=== PATIENT | female | born 1990 | race Caucasian/White ===

== ENCOUNTER → 2020-08-09 12:09 | Outpatient (CLI) | payer OTHER, MEDICAID, SELFPAY ==
[2020-08-09] MEDS: COVID-19 VACC #1, MRNA(MOD) 100 MCG/0.5 ML VIAL IM (12:19)
== END ==
PROVIDERS: Visit Provider Internal Medicine
DX: Z23 Encounter for immunization (principal)
CPT/HCPCS: 0011A; 91301

== ENCOUNTER → 2020-09-07 12:12 | Outpatient (CLI) | payer OTHER, MEDICAID, SELFPAY ==
[2020-09-07] MEDS: COVID-19 VACC #2, MRNA(MOD) 100 MCG/0.5 ML VIAL IM (12:20)
== END ==
PROVIDERS: Visit Provider Internal Medicine
DX: Z23 Encounter for immunization (principal)
CPT/HCPCS: 0012A; 91301

== ENCOUNTER 2021-12-22 09:40 | Emergency (ER) | payer OTHER, MEDICAID, SELFPAY ==
[2021-12-22 09:55] VITALS: BP 119/68; PULSE 70; RESP 15; TEMP 36.3; O2SAT 99; BMI 46.5
[2021-12-22 11:22] VITALS: BP 116/69; PULSE 59; TEMP 36.5; O2SAT 100
[2021-12-22] MEDS: hydrOXYzine pamoate 25 MG CAPSULE PO (12:34)
[2021-12-22] MEDS: predniSONE 20 MG TABLET 40 MG PO (12:34)
[2021-12-22 12:37] VITALS: BP 116/70; PULSE 6; RESP 18; O2SAT 98
--- NOTE | 2021-12-22 14:09 | ED.SKABFB ---
HPI - Skin/Abscess/Foreign Bdy <WONG Wood - Last Filed: 12/22/21 14:16> General Chief complaint: Skin/Abscess/Foreign Body Stated complaint: Rash after bug bites 6 days ago Time Seen by Provider: 12/22/21 12:00 Source: patient Mode of arrival: Ambulatory Limitations: no limitations History of Present Illness HPI narrative: This is a 31-year-old female presents to the emergency department with a pruritic rash on her bilateral lower extremities after she had some bug bites and was outside of the [facility] six days ago. Patient states that she does not have any abscesses or open wounds, and her bug bites or healed, but she developed this the next day on her bilateral legs and it extends up into the mid thigh, states it is not significantly red but it is just tiny bumps that are irritated and itchy, states that she thinks there hives on her upper legs and that it is worse at nighttime. She denies any known allergies, states that she takes Suboxone at baseline for chronic pain. Denies any recent fever but states that she had a runny nose, sore throat, and diarrhea yesterday. She states that normally she is constipated so that was abnormal for her. She denies any cough, shortness of breath, chest pain, or any worsening of this rash. She says that she is tried topical calamine and hydrocortisone cream and it has not helped. She denies trying any oral medications yet. Related Data Previous Rx's Medication Instructions Recorded cetirizine 10 mg tablet 10 mg PO DAILY #30 tabs 12/22/21 hydroxyzine HCl 25 mg tablet 25 mg PO TID PRN itching #20 tabs 12/22/21 methylprednisolone 4 mg tablets in See Rx Instructions PO .COMPLEX 12/22/21 a dose pack (Medrol (Jet)) #21 ea triamcinolone acetonide 0.1 % 1 applic topical DAILY PRN rash 12/22/21 topical ointment #15 grams Allergies Allergy/AdvReac Type Severity Reaction Status Date / Time No Known Drug Allergies Allergy Verified 12/22/21 09:55 Review of Systems <WONG Wood - Last Filed: 12/22/21 14:16> Review of Systems Narrative: General: denies fever, chills Head/Neck: denies headache, neck pain Eyes: denies visual changes, eye pain Cardio: denies chest pain, palpitations Respiratory: denies shortness of breath, cough GI: denies abdominal pain, nausea, vomiting, or diarrhea : denies dysuria, hematuria or flank pain MSK: denies new joint pain, muscle weakness or swelling Skin: Endorses having an itchy rash on her bilateral lower extremities without any open wound or infected bug bites Neuro: denies numbness, tingling, dizziness Patient History <WONG Wood - Last Filed: 12/22/21 14:16> Social History Smoking Status: Unknown if ever smoked Smoking Status: Unknown if ever smoked alcohol intake frequency: 0-2 drinks per day Substance Use Type: does not use Exam <WONG Wood - Last Filed: 12/22/21 14:16> Narrative Exam Narrative: Independently reviewed vitals signs and nursing notes. General: Awake, alert, nontoxic, no cardiorespiratory distress, interactive Head/Neck: Atraumatic, neck with normal range of motion Eyes: EOMI, conjunctiva normal Nose: nares patent, no rhinorrhea Mouth/Throat: moist mucus membranes Cardiovascular: Regular rate and rhythm, no dependant edema, warm extremities Respiratory: respirations unlabored and without wheezing, stridor, or rales. No retractions, hypoxia or tachypnea MSK: Moves all extremities, neurovascularly intact, range of motion without deficit Skin: Normal capillary refill, urticarial lesions on bilateral lower extremities, maculopapular with tiny pink papules. No associated edema or significant erythema. Neuro: Normal speech and cognition, normal gait Initial Vital Signs Initial Vital Signs: Vital Signs Temperature 97.4 F L 12/22/21 09:55 Pulse Rate 70 12/22/21 09:55 Respiratory Rate 15 12/22/21 09:55 Blood Pressure 119/68 12/22/21 09:55 Pulse Oximetry 99 12/22/21 09:55 Oxygen Delivery Method 12/22/21 09:55 <Elva Ba DO - Last Filed: 12/23/21 07:44> Initial Vital Signs Initial Vital Signs: Vital Signs Temperature 97.4 F L 12/22/21 09:55 Pulse Rate 70 12/22/21 09:55 Respiratory Rate 15 12/22/21 09:55 Blood Pressure 119/68 12/22/21 09:55 Pulse Oximetry 99 12/22/21 09:55 Oxygen Delivery Method 12/22/21 09:55 Course <WONG Wood - Last Filed: 12/22/21 14:16> Orders Ordered: Discontinued Medications Hydroxyzine Pamoate (Hydroxyzine Pamoate 25 Mg Capsule) 25 mg PO NOW ONE Stop: 12/22/21 12:26 Last Admin: 12/22/21 12:34 Dose: 25 mg Documented By: CHECO Prednisone (Prednisone 20 Mg Tablet) 40 mg PO NOW ONE Stop: 12/22/21 12:26 Last Admin: 12/22/21 12:34 Dose: 40 mg Documented By: CHECO Vital Signs Vital signs: Vital Signs - 8 hr 12/22/21 09:55 12/22/21 11:22 12/22/21 12:37 Temperature 97.4 F L 97.7 F Pulse Rate 70 59 L 6 L Respiratory Rate 15 18 Blood Pressure 119/68 116/69 116/70 Pulse Oximetry 99 100 98 Oxygen Delivery Method Room Air Room Air <Elva Ba DO - Last Filed: 12/23/21 07:44> Orders Ordered: Discontinued Medications Hydroxyzine Pamoate (Hydroxyzine Pamoate 25 Mg Capsule) 25 mg PO NOW ONE Stop: 12/22/21 12:26 Last Admin: 12/22/21 12:34 Dose: 25 mg Documented By: CHECO Prednisone (Prednisone 20 Mg Tablet) 40 mg PO NOW ONE Stop: 12/22/21 12:26 Last Admin: 12/22/21 12:34 Dose: 40 mg Documented By: CHECO Vital Signs Vital signs: Vital Signs - 8 hr 12/22/21 09:55 12/22/21 11:22 12/22/21 12:37 Temperature 97.4 F L 97.7 F Pulse Rate 70 59 L 6 L Respiratory Rate 15 18 Blood Pressure 119/68 116/69 116/70 Pulse Oximetry 99 100 98 Oxygen Delivery Method Room Air Room Air MDM - Skin/Abscess/Foreign Bdy <WONG Wood - Last Filed: 12/22/21 14:16> MDM Narrative Medical decision making narrative: This is a 31-year-old female presents to the emergency department complaining of an itchy rash on her bilateral lower legs after she went to the [facility] last week and had some bug bites. She states the next day she developed this rash on her legs, states that she had diarrhea a couple of days ago and a sore throat with a runny nose but has not had any coughing or significant symptoms otherwise. She is tried hydrocortisone cream did not help. Today in the emergency department she was treated with prednisone and hydroxyzine for pruritus, she was given a prescription of cetirizine, triamcinolone cream, and hydroxyzine and a methylprednisolone pack. Encourage patient to return to the emergency department she has any progressive symptoms of this rash, if it becomes red or if there are signs of infection, if she develops a fever or edema associated with the rash. Low suspicion for cellulitis, these appear most like urticarial lesions. Patient is appropriate and amenable to discharge home. Vital signs are stable on repeat examination is unremarkable. Patient has been informed of results. Patient has been given strict return to ER precautions for any new or worsening symptoms. Patient understands to follow up closely with outpatient providers as instructed. Patient understands plan and agrees to discharge home. All questions and concerns answered at this time. Discharge Plan Departure Patient Disposition: Home Clinical Impression: Urticaria Instructions: RONA Valdes for Rash Activity Restrictions/Additional Instructions: *You have been diagnosed with a rash of your legs following bug bites. This is most likely an allergic reaction to the bug bite, I did not see any lesions that appeared infected or like an abscess but if this does develop or you have worsening symptoms following this please return to the emergency department for possible antibiotics. Please treat your itchy rash during the daytime with hydroxyzine, Zyrtec, and topical triamcinolone cream. The steroids should help you feel better soon, please take your medications with food. Drink plenty of water to avoid constipation. This could be related to a viral illness and might make sense with your recent fatigue and diarrhea. If you develop a fever, please consider taking a COVID test. Thank you for trusting us with your care, please return for any worsening. You can start the steroid pack tomorrow. Benadryl cream can help with itching as well. *What to do: *Please continue to take your regular medications as directed. [ x] New medication prescriptions sent to your pharmacy: [[facility]] [ ] New medication written as a paper prescription [ ] No new medications given *Please follow up with your primary care provider in 2-3 days, call for an appointment. Let them know you were seen in the Emergency Department and that we asked that you be seen for follow-up. We will electronically transmit a record of today's note if your PCP is in our system *If you do not have a primary care provider please contact [phone] to establish care with one of the [facility] primary care providers. *Return to Emergency Department if you should have any new, worsening or concerning symptoms, such as [fever greater than 101F, chills, worsening pain, persistent vomiting or other bothersome symptoms] Prescriptions: New hydroxyzine HCl 25 mg tablet 25 mg PO TID PRN (Reason: itching) Qty: 20 0RF cetirizine 10 mg tablet 10 mg PO DAILY Qty: 30 0RF methylprednisolone [Medrol (Jet)] 4 mg tablets,dose pack See Rx Instructions .ROUTE .COMPLEX Qty: 21 0RF Rx Instructions: orally per package directions triamcinolone acetonide 0.1 % ointment 1 applic topical DAILY PRN (Reason: rash) Qty: 15 0RF Rx Instructions: Use for up to five days in a row and then take two days off. Visit Report Forms: Patient Portal/API <Elva Ba, DO - Last Filed: 12/23/21 07:44> [facility] Attestation: I was immediately available in the department for consultation. Documentation has been reviewed. I agree with assessment and plan.
== END 2021-12-22 12:38 | disposition home or self-care (01) ==
PROVIDERS: Emergency Provider Nurse Practitioner Critical Care Medicine
DX: L50.9 Urticaria, unspecified (principal)
CPT/HCPCS: 99283

== ENCOUNTER 2021-12-31 12:57 | Emergency (ER) | payer OTHER, MEDICAID, SELFPAY ==
[2021-12-31 13:11] VITALS: BP 145/81; PULSE 70; RESP 16; TEMP 36.7; O2SAT 98; BMI 46.5
--- NOTE | 2021-12-31 13:29 | ED_ITS ---
HPI - Nausea/Vomiting/Diarrhea General Chief complaint: Nausea/Vomiting/Diarrhea Stated complaint: NVD X 14 days Time Seen by Provider: 12/31/21 13:22 History of Present Illness HPI Narrative: Patient is a 31 year old female chronically on Suboxone presenting today with her other family members for soft poop for 2 weeks. She says 3 times a day they have some fatty like all of them. It is nonbloody. She feels little bit bloated. No nausea vomiting or fever. Started after daughter plated the splash pad and maybe drink some water. However nor she or her drink water. Not any worse today just not going away. She is able to eat and drink normally. Related Data Previous Rx's Medication Instructions Recorded cetirizine 10 mg tablet 10 mg PO DAILY #30 tabs 12/22/21 hydroxyzine HCl 25 mg tablet 25 mg PO TID PRN itching #20 tabs 12/22/21 methylprednisolone 4 mg tablets in See Rx Instructions PO .COMPLEX 12/22/21 a dose pack (Medrol (Jet)) #21 ea triamcinolone acetonide 0.1 % 1 applic topical DAILY PRN rash 12/22/21 topical ointment #15 grams Allergies Allergy/AdvReac Type Severity Reaction Status Date / Time No Known Drug Allergies Allergy Verified 12/22/21 09:55 Review of Systems Review of Systems Narrative: GENERAL: Denies chills,fever HEENT: Denies throat pain RESPIRATORY: Denies dyspnea, cough, wheezing CARDIOVASCULAR: Denies chest pain, palpitations GASTROINTESTINAL: See HPI MUSCULOSKELETAL: Denies extremity pain, injury SKIN: No rash, no laceration, no pruritus NEUROLOGIC: Denies weakness, dizziness, headache, numbness 8 point review of systems is negative except for those stated above and HPI Patient History Social History Smoking Status: Unknown if ever smoked Smoking Status: Unknown if ever smoked alcohol intake frequency: 0-2 drinks per day Substance Use Type: does not use Exam Initial Vital Signs Initial Vital Signs: Vital Signs Temperature 98.1 F 12/31/21 13:11 Pulse Rate 70 12/31/21 13:11 Respiratory Rate 16 12/31/21 13:11 Blood Pressure 145/81 H 12/31/21 13:11 Pulse Oximetry 98 12/31/21 13:11 Oxygen Delivery Method 12/31/21 13:11 GENERAL: Alert well-appearing 31-year-old female HEENT: Head atraumatic,EOMI, pupils reactive, face symmetric, [moist] mucous membranes CARDIOVASCULAR: Regular rate and rhythm without murmurs, rubs or gallops. RESPIRATORY: Breath sounds equal bilaterally, no wheezes rales or rhonchi. ABDOMEN: Soft, nontender. Normoactive bowel sounds all 4 quadrants. No guarding or rebound. EXTREMITIES: Normal range of motion, no clubbing or edema. Neurovascularly intact NEUROLOGICAL: Alert and oriented x4. SKIN: Warm, dry, no laceration, no petechiae, no rashes or lesions. Course Vital Signs Vital signs: Vital Signs - 8 hr 12/31/21 13:11 Temperature 98.1 F Pulse Rate 70 Respiratory Rate 16 Blood Pressure 145/81 H Pulse Oximetry 98 Oxygen Delivery Method Room Air MDM - Nausea/Vomiting/Diarrhea MDM Narrative Medical decision making narrative: Patient has had ongoing 3 loose stools a day for 2 weeks. She is able to eat and drink normally. At this time there is no indication to do any sort of blood work. Child provided a stool sample however it is too formed for the lab to test. Discharge Plan Departure Patient Disposition: Home Clinical Impression: Gastroenteritis Instructions: DI for Viral Gastroenteritis -- Adult Activity Restrictions/Additional Instructions: *You have been diagnosed with diarrhea *What to do: At this time I do not have an explanation for your diarrhea. Encourage you to have outpatient follow-up with her primary care provider. *Continue to take medications as directed May try Imodium as directed [id number] *Follow up with your primary care provider in 2-3 days or call [phone] *Return to ER if you should have bloody diarrhea, increased abdominal pain persistent vomiting diarrhea more than 10 times a day liquidy or any new, worsening or concerning symptoms Prescriptions: No Action hydroxyzine HCl 25 mg tablet 25 mg PO TID PRN (Reason: itching) Qty: 20 0RF cetirizine 10 mg tablet 10 mg PO DAILY Qty: 30 0RF methylprednisolone [Medrol (Jet)] 4 mg tablets,dose pack See Rx Instructions .ROUTE .COMPLEX Qty: 21 0RF Rx Instructions: orally per package directions triamcinolone acetonide 0.1 % ointment 1 applic topical DAILY PRN (Reason: rash) Qty: 15 0RF Rx Instructions: Use for up to five days in a row and then take two days off. Visit Report Forms: Patient Portal/API
== END 2021-12-31 13:55 | disposition home or self-care (01) ==
PROVIDERS: Emergency Provider Emergency Medicine
DX: K52.9 Noninfective gastroenteritis and colitis, unspecified (principal)
CPT/HCPCS: 99281

== ENCOUNTER 2022-01-31 21:41 | Emergency (ER) | payer OTHER, MEDICAID, SELFPAY ==
[2022-01-31 22:03] VITALS: BP 119/69; PULSE 79; RESP 18; TEMP 36.7; O2SAT 100
== END 2022-01-31 22:30 | disposition left against medical advice (07) ==
PROVIDERS: Emergency Provider Emergency Medicine
CPT/HCPCS: 99281

== ENCOUNTER 2023-04-22 11:47 | Emergency (ER) | payer OTHER, MEDICAID, SELFPAY ==
[2023-04-22 11:52] VITALS: BP 138/78; PULSE 87; RESP 16; TEMP 36.5; O2SAT 98; BMI 48.2
[2023-04-22 12:26] LABS: Strep Grp A by PCR Rapid Negative (Negative)
--- NOTE | 2023-04-22 13:16 | ED.URI ---
HPI - URI/Sore Throat <Son Monteiro PA-C - Last Filed: 04/22/23 13:44> General Chief Complaint: Upper Respiratory Symptoms Stated Complaint: upper resp Time Seen by Provider: 04/22/23 12:47 Mode of arrival: Family Vehicle History of Present Illness HPI Narrative: 32-year-old female presents to the ED with 2 days of sore throat and fever. Patient endorses a runny nose but no cough. Denies chest pain, shortness of breath. Able to tolerate p.o.. Related Data Previous Rx's Medication Instructions Recorded cetirizine 10 mg tablet 10 mg PO DAILY #30 tabs 12/22/21 hydroxyzine HCl 25 mg tablet 25 mg PO TID PRN itching #20 tabs 12/22/21 methylprednisolone 4 mg tablets in See Rx Instructions PO .COMPLEX 12/22/21 a dose pack (Medrol (Jet)) #21 ea triamcinolone acetonide 0.1 % 1 applic topical DAILY PRN rash 12/22/21 topical ointment #15 grams Allergies Allergy/AdvReac Type Severity Reaction Status Date / Time No Known Drug Allergies Allergy Verified 04/22/23 11:55 <Erin Hua DO - Last Filed: 04/23/23 11:22> History of Present Illness HPI Narrative: 32-year-old female presents to the ED with 2 days of sore throat and fever. Patient endorses a runny nose but no cough. Denies chest pain, shortness of breath. Able to tolerate p.o. Review of Systems <Son Monteiro PA-C - Last Filed: 04/22/23 13:44> Constitutional Constitutional: Denies chills, Denies fatigue, Denies fever(s), Denies frequent falls, Denies lethargy and Denies weakness Eyes Eyes: Denies change in vision, Denies eye discharge, Denies irritation and Denies loss of vision ENT Ears, Nose, Mouth, and Throat: Denies change in voice, Denies dizziness, Reports nasal discharge, Denies neck pain, Reports sore throat and Denies throat swelling Cardiovascular Cardiovascular: Denies chest pain, Denies irregular heart rhythm, Denies lightheadedness, Denies palpitations, Denies dyspnea, Denies dyspnea on exertion and Denies orthopnea Respiratory Respiratory: Denies cough, Denies dyspnea, Denies dyspnea on exertion and Denies wheezing Gastrointestinal Gastrointestinal: Denies abdominal pain, Denies change in bowel habits, Denies diarrhea, Denies nausea and Denies vomiting Musculoskeletal Musculoskeletal: Denies neck pain and Denies numbness Integumentary/Breasts Skin/Breast: Denies pruritus, Denies erythema, Denies rash and Denies wounds Neurologic Neurologic: Denies behavioral changes, Denies confusion, Denies dizziness, Denies frequent falls, Denies loss of vision, Denies numbness and Denies weakness Psychiatric Psychiatric: Denies anxiety, Denies behavioral changes, Denies confusion, Denies depression, Denies homicidal ideation and Denies suicidal ideation Endocrine Endocrine: Denies fatigue, Denies flushing and Denies palpitations Hematologic/Lymphatic Hematologic/Lymphatic: Denies easy bruising Allergic/Immunologic Allergic/Immunologic: Denies urticaria, Denies throat swelling and Denies wheezing Patient History <Son Monteiro PA-C - Last Filed: 04/22/23 13:44> Social History Smoking Status: Unknown if ever smoked Smoking Status: Unknown if ever smoked alcohol intake frequency: 0-2 drinks per day Substance Use Type: does not use Exam <Son Monteiro PA-C - Last Filed: 04/22/23 13:44> Narrative Exam Narrative: Const General:?cooperative, healthy appearing and comfortable [facility] Head:?normal to inspection Ears:?hearing grossly normal bilaterally Nose:?external nose normal Face and sinus:?normal facial exam and sinuses nontender Mouth:?oral mucosae normal Throat:?posterior oropharynx appears mildly erythematous, no exudates; airway is patent Eyes General:?appearance normal, both eyes and all related structures Neck Neck:?normal visual inspection and no lymphadenopathy noted Resp Effort & Inspection:?normal respiratory effort Auscultation:?clear to auscultation bilaterally Cardio Rate:?regular rate Rhythm:?regular rhythm Neuro General:?patient alert, patient awake and patient oriented x3 Initial Vital Signs Initial Vital Signs: Vital Signs Temperature 97.7 F 04/22/23 11:52 Pulse Rate 87 04/22/23 11:52 Respiratory Rate 16 04/22/23 11:52 Blood Pressure 138/78 04/22/23 11:52 Pulse Oximetry 98 04/22/23 11:52 Oxygen Delivery Method Room Air 04/22/23 11:52 <Erin Hua DO - Last Filed: 04/23/23 11:22> Initial Vital Signs Initial Vital Signs: Vital Signs Temperature 97.7 F 04/22/23 11:52 Pulse Rate 87 04/22/23 11:52 Respiratory Rate 16 04/22/23 11:52 Blood Pressure 138/78 04/22/23 11:52 Pulse Oximetry 98 04/22/23 11:52 Oxygen Delivery Method Room Air 04/22/23 11:52 Course <Son Monteiro PA-C - Last Filed: 04/22/23 13:44> Orders Ordered: ED Orders 04/22/23 12:03 Strep Grp A by PCR Rapid Stat 04/22/23 13:15 Throat Culture Stat Vital Signs Vital signs: Vital Signs - 8 hr 04/22/23 11:52 Temperature 97.7 F Pulse Rate 87 Respiratory Rate 16 Blood Pressure 138/78 Pulse Oximetry 98 Oxygen Delivery Method Room Air <DO Zena Mixon Last Filed: 04/23/23 11:22> Orders Ordered: ED Orders 04/22/23 12:03 Strep Grp A by PCR Rapid Stat 04/22/23 13:15 Throat Culture Stat Vital Signs Vital signs: Vital Signs - 8 hr 04/22/23 11:52 Temperature 97.7 F Pulse Rate 87 Respiratory Rate 16 Blood Pressure 138/78 Pulse Oximetry 98 Oxygen Delivery Method Room Air MDM - URI/Sore Throat <Son Monteiro PA-C - Last Filed: 04/22/23 13:44> Lab Data Labs: Lab Results 04/22/23 Range/Units 12:03 Group A Strep (PCR) Negative (Negative) MDM Narrative Medical decision making narrative: 32-year-old female presents to the ED with 2 days of sore throat and fever. Concern for strep pharyngitis versus viral pharyngitis versus URI versus other. Will obtain strep swab, reassess. Rapid strep was negative. Will send for culture. Recommend supportive measures. Recommend follow-up with PCP as soon as possible. ED return precautions discussed with patient. Patient verbalized understanding. Medical records reviewed: Yes <DO Zena Mixon Last Filed: 04/23/23 11:22> Lab Data Labs: Lab Results 12/04/23 Range/Units 12:03 Group A Strep (PCR) Negative (Negative) Discharge Plan Departure Patient Disposition: Home Clinical Impression: Pharyngitis Qualifiers: Pharyngitis/tonsillitis etiology: unspecified etiology Qualified Code(s): J02.9 - Acute pharyngitis, unspecified Instructions: Sore Throat Activity Restrictions/Additional Instructions: You were evaluated in the ED today for a sore throat and fever. Your rapid strep test was negative. Your swab has been sent for a culture for further analysis. We will call you if it is positive and prescribe antibiotics as well. Please stay well hydrated, you may take Tylenol or ibuprofen for your symptoms. Return to the ED if you note any chest pain or shortness of breath. Prescriptions: No Action hydroxyzine HCl 25 mg tablet 25 mg PO TID PRN (Reason: itching) Qty: 20 0RF cetirizine 10 mg tablet 10 mg PO DAILY Qty: 30 0RF methylprednisolone [Medrol (Jet)] 4 mg tablets,dose pack See Rx Instructions .ROUTE .COMPLEX Qty: 21 0RF Rx Instructions: orally per package directions triamcinolone acetonide 0.1 % ointment 1 applic topical DAILY PRN (Reason: rash) Qty: 15 0RF Rx Instructions: Use for up to five days in a row and then take two days off. Stand Alone Forms: Patient Portal/API ED Sign-out <Erin Hua DO - Last Filed: 04/23/23 11:22> [facility]ign ED Attending Joseph Attestation: I was immediately available in the department for consultation.
== END 2023-04-22 13:51 | disposition home or self-care (01) ==
PROVIDERS: Emergency Medicine; Emergency Provider Student in an Organized Health Care Education/Training Program
DX: J02.9 Acute pharyngitis, unspecified (principal)
CPT/HCPCS: 87070; 87651; 99281; 99283